=== PATIENT | male | born 1980 | race Caucasian/White ===

== ENCOUNTER → 2016-11-19 | Outpatient (CLI) | payer OTHER ==
--- NOTE | 2016-11-19 16:25 | KCIC ---
PROCEDURE Bilateral three-view knee HISTORY Polyarthralgia. Chronic knee pain. COMPARISON None FINDINGS Right knee No evidence of acute fracture. No bone destruction. Joint spaces and soft tissue appear unremarkable. Left knee No evidence of acute fracture or bone destruction. Joint spaces are intact. Soft tissues appear unremarkable. IMPRESSION No evidence of acute radiographic abnormality. Electronically signed by: Francisco Mayes MD (Nov 19, 2016 16:23:52)
== END | disposition home or self-care (01) ==
LOC: KCIC 15:01
PROVIDERS: ATTEND Internal Medicine Rheumatology
DX: G89.29 Other chronic pain (principal); M25.561 Pain in right knee; M25.562 Pain in left knee
CPT/HCPCS: 73562